=== PATIENT | male | born 1990 | race Two or more races ===

== ENCOUNTER 2016-04-18 23:36 | Emergency (ER) | payer SELFPAY ==
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
== END 2016-04-19 00:02 | disposition home or self-care (01) ==
LOC: ER 23:36
DX: S01.81XA Laceration without foreign body of other part of head, initial encounter (principal); S60.512A Abrasion of left hand, initial encounter; S60.511A Abrasion of right hand, initial encounter; F10.129 Alcohol abuse with intoxication, unspecified; Y04.0XXA Assault by unarmed brawl or fight, initial encounter